=== PATIENT | female | born 1970 | race Caucasian/White ===

== ENCOUNTER → 2022-03-20 14:44 | Outpatient (CLI) | payer OTHER, SELFPAY ==
--- NOTE | ~2022-03-20 | XR_ITS ---
XR elbow RT min 3V DATE: 03/20/2022 15:02 INDICATION: Posterior elbow pain. No injury. TECHNIQUE: 4 views COMPARISON: None FINDINGS: No fracture or dislocation or joint effusion. No periosteal reaction or bone destruction. J oint spaces are preserved. IMPRESSION: Negative Reviewed, dictated and finalized at location B. TEGY SPECIALIST IMPRESSION: Negative
--- NOTE | ~2022-03-20 | XR_ITS ---
XR knee RT 3V DATE: 03/20/2022 15:01 INDICATION: Anterior and posterior right knee pain. No injury. TECHNIQUE: AP, lateral and sunrise views COMPARISON: None FINDINGS: There is mild periarticular spurring of the patella. Knee joint spaces are well preserved. No radiopaque intra-articular loose body or chondrocalcinosis. No fracture or dislocation or joint effusion. No periosteal reaction or bone destruction. IMPRESSION: Mild patellofemoral osteoarthritis Reviewed, dictated and finalized at location B. 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
== END ==
PROVIDERS: PCP Internal Medicine; Visit Provider Orthopaedic Surgery
DX: M25.521 Pain in right elbow (principal); M17.11 Unilateral primary osteoarthritis, right knee
CPT/HCPCS: 73080; 73562

== ENCOUNTER → 2022-05-08 17:07 | Outpatient (CLI) | payer OTHER, SELFPAY ==
--- NOTE | ~2022-05-08 | MR_ITS ---
MRI of the right knee Clinical history: Pain Technique: Coronal proton density and proton density-weighted images, sagittal proton-density and T2 fat-sat images, and axial proton-density fat-saturated images were acquired. Findings: Anterior and posterior cruciate ligaments are intact. Medial collateral ligament and the la teral collateral ligament complex are intact. Popliteus tendon is intact. Medial and lateral menisci are intact, without evidence of tear. Articular cartilage is well preserved in the medial and lateral compartment. There are probable grade I chondromalacia changes on the patella. Bone marrow signals are unremarkable. Extensor mechanism is intact. No joint effusion or Ulloa's cyst. There is mild edematous change of th e quadriceps fat pad. Impression: Mild edematous change of the quadriceps fat pad. Consider impingement. Grade I chondromalacia patella. Reviewed, dictated and finalized at [facility]. 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 Consider impingement. Grade I chondromalacia patella.
== END ==
PROVIDERS: PCP Orthopaedic Surgery; Visit Provider Orthopaedic Surgery
DX: M25.561 Pain in right knee (principal); R60.9 Edema, unspecified; M22.41 Chondromalacia patellae, right knee
CPT/HCPCS: 73721

== ENCOUNTER 2022-05-18 12:41 | Emergency (ER) | payer OTHER, SELFPAY ==
[2022-05-18 12:56] VITALS: BP 140/96; PULSE 88; RESP 16; TEMP 36.1; O2SAT 100
--- NOTE | 2022-05-18 13:00 | ED.EAR ---
HPI - Ear Problem General Chief complaint: Ear Stated complaint: Lt Ear Irritation Time Seen by Provider: 05/18/22 12:58 Source: patient Mode of arrival: ambulatory Limitations: no limitations History of Present Illness HPI Narrative: Samreen is a 52-year-old female patient presenting to the clinic today with complaints of left ear pain x1 day. She reports that she has had nasal congestion, runny nose, and cough x1 week. She denies any fever or chills. Related Data Home Medications Medication Instructions Recorded Confirmed fluoxetine 20 mg capsule 20 mg PO DAILY 05/18/22 05/18/22 losartan 50 mg-hydrochlorothiazide 1 tablet PO DAILY 05/18/22 05/18/22 12.5 mg tablet Allergies Allergy/AdvReac Type Severity Reaction Status Date / Time No Known Allergies Allergy Verified 05/18/22 12:46 Review of Systems Review of Systems: Pertinent positives per HPI. Patient denies any fever, chills, rash, headache, visual changes, dizziness, shortness of breath, chest pain, palpitations, nausea, vomiting, diarrhea, constipation, abdominal pain, or any urinary issues. PMFSH Comments At the time of my signature, I reviewed and agree with the nursing past medical, surgical, social, and family history. There is no relevant family history pertinent to the patient complaint. Exam Narrative: General: Well-developed, well nourished, in no apparent distress Head: Normocephalic, atraumatic Eyes: Pupils equally round and reactive to light bilaterally, EOM intact, sclera and conjunctive clear, no discharge, lids normal Ears: Right TMs intact and clear, left TM intact, bulging, red, ear canals clear, no drainage, grossly hearing normal. Nose: Nares patent, clear nasal discharge, no inflammation, no sinus tenderness. Mouth: Oral pharynx without lesions or masses, good dentition, MMM. Postnasal drip Neck: Supple, trachea midline, no enlargement of anterior or posterior cervical nodes, no thyroid masses or goiter palpable. Cardio: Regular rate and rhythm, s1 and s2 normal, no murmur appreciated. Resp: Clear to auscultation bilaterally, no rhonchi, rales, wheezing or rubs Course Course Emergency Course: Portions of this record may have been created with voice recognition software. Level of Care: Express Care Visit Vital Signs Vital signs: Vital Signs Temperature 36.1 C L 05/18/22 12:56 Pulse Rate 88 05/18/22 12:56 Respiratory Rate 16 05/18/22 12:56 Blood Pressure 140/96 H 05/18/22 12:56 Pulse Oximetry 100 05/18/22 12:56 Oxygen Delivery Room Air 05/18/22 12:56 Temperature 36.1 C L 05/18/22 12:56 Pulse Rate 88 05/18/22 12:56 Respiratory Rate 16 05/18/22 12:56 Blood Pressure 140/96 H 05/18/22 12:56 Pulse Oximetry 100 05/18/22 12:56 Oxygen Delivery Room Air 05/18/22 12:56 Vital signs reviewed Medical Decision Making MDM Narrative Medical decision making narrative: At the time of visit patient is resting comfortably on exam table. I suspect patient has right otitis media and URI. Prescription for amoxicillin was sent to pharmacy and supportive measures were discussed with the patient she voiced understanding of discharge instructions and agrees to treatment plan. Differential Diagnosis Differential Diagnosis: Otitis media, otitis externa, eustachian tube dysfunction, upper respiratory infection Vital Signs Vital Signs: Vital Signs Temperature 36.1 C L 05/18/22 12:56 Pulse Rate 88 05/18/22 12:56 Respiratory Rate 16 05/18/22 12:56 Blood Pressure 140/96 H 05/18/22 12:56 Pulse Oximetry 100 05/18/22 12:56 Oxygen Delivery Room Air 05/18/22 12:56 Temperature 36.1 C L 05/18/22 12:56 Pulse Rate 88 05/18/22 12:56 Respiratory Rate 16 05/18/22 12:56 Blood Pressure 140/96 H 05/18/22 12:56 Pulse Oximetry 100 05/18/22 12:56 Oxygen Delivery Room Air 05/18/22 12:56 Discharge Plan Discharge Clinical Impression: Acute upper respiratory infection, O
== END 2022-05-18 13:08 | disposition home or self-care (01) ==
PROVIDERS: Emergency Provider Nurse Practitioner Family; PCP Internal Medicine
DX: J06.9 Acute upper respiratory infection, unspecified (principal); H66.92 Otitis media, unspecified, left ear; I10 Essential (primary) hypertension; F41.9 Anxiety disorder, unspecified; F32.A Depression, unspecified
CPT/HCPCS: 99213; G0463

== ENCOUNTER 2024-04-07 17:44 | Emergency (ER) | payer OTHER, SELFPAY ==
[2024-04-07 17:51] VITALS: BP 127/84; PULSE 69; RESP 18; TEMP 36.6; O2SAT 100
--- NOTE | 2024-04-07 18:00 | ED_ITS ---
HPI - URI/Sore Throat General Chief Complaint: Upper Respiratory Infection Stated Complaint: cough Time Seen by Provider: 04/07/24 18:00 Source: patient, RN notes reviewed and old records reviewed Mode of arrival: ambulatory Limitations: no limitations History of Present Illness HPI Narrative: Patient with multiple family members with atypical pneumonia presents today with productive cough, sore throat, lack of energy. She reports symptoms have been present for about 5 days. She reports symptoms are worsening. She denies any shortness of breath, but does report that she feels as though cough is tight. She reports that cough has become painful Related Data Home Medications ?Medication ?Instructions ?Recorded ?Confirmed ?Last Taken ?Type fluoxetine 20 mg capsule 20 mg PO DAILY 05/18/22 05/18/22 Unknown History losartan 50 mg-hydrochlorothiazide 1 tablet PO DAILY 05/18/22 05/18/22 Unknown History 12.5 mg tablet Allergies Allergy/AdvReac Type Severity Reaction Status Date / Time No Known Allergies Allergy Verified 04/07/24 17:54 Review of Systems Review of Systems: All systems reviewed & are unremarkable except as noted in HPI and below Constitutional: Constitutional: Reports no additional constitutional complaints and Reports lethargy ENT: Reports system reviewed and no additional complaints, except as documented and Reports sore throat Cardiovascular: Cardiovascular: Reports no additional cardiovascular complaints Respiratory: Respiratory: Reports no additional respiratory complaints, Reports cough and Reports pain with cough Gastrointestinal: Gastrointestinal: Reports no additional gastrointestinal complaints PMFSH Comments At the time of my signature, I reviewed and agree with the nursing past medical, surgical, social, and family history. There is no relevant family history pertinent to the patient complaint. Exam Const: General: cooperative, no acute distress, alert and awake Orientation/consciousness: oriented to person, oriented to place and oriented to time HENMT: Head: normal to inspection Resp: Effort & Inspection: normal respiratory effort and able to speak in complete sentences Auscultation: clear to auscultation bilaterally, no crackles, no rales, no rhonchi and no wheezes Cardio: Palpation: normal PMI Rate: regular rate Rhythm: regular rhythm Heart sounds: S1 normal heart sound present and S2 normal heart sound present Neuro: General: oriented to person, oriented to place and oriented to time Cranial nerves: Yes CN's II-XII intact bilaterally Psych: Appearance: grossly normal Thought process: Normal thought process present Insight: Good insight present (Psych) Judgement: Good judgement present (Psych) Course Course Level of Care: Express Care Visit Vital Signs Vital signs: Vital Signs Temperature 97.8 F 04/07/24 17:51 Pulse Rate 69 04/07/24 17:51 Respiratory Rate 18 04/07/24 17:51 Blood Pressure 127/84 04/07/24 17:51 Pulse Oximetry 100 04/07/24 17:51 Oxygen Delivery Room Air 04/07/24 17:51 Temperature 97.8 F 04/07/24 17:51 Pulse Rate 69 04/07/24 17:51 Respiratory Rate 18 04/07/24 17:51 Blood Pressure 127/84 04/07/24 17:51 Pulse Oximetry 100 04/07/24 17:51 Oxygen Delivery Room Air 04/07/24 17:51 Reviewed MDM - URI/Sore Throat MDM Narrative Medical decision making narrative: reassuring physical exam. Patient not any distress. History consistent with atypical pneumonia that is prevalent in the community at this time. Will treat as such. She is nontoxic appearing and stable for discharge home on p.o. antibiotic therapy and bronchodilators. Discharge instructions reviewed with patient, as well as provided in writing per nursing staff. The instructions also include specific and strict return/GO TO THE ER as well as f/u information. All questions have been answered, and the patient deny any further questions with discharge and discharge plan. Some parts of this dictation were generated by voice recognition software and may contain typographical and/or grammatical inaccuracies. Differential Diagnosis Differential diagnosis: Likely upper respiratory infection, sinusitis, viral infection, influenza and pharyngitis Medical Records Attestation: I reviewed the patient's medical records. Discharge Plan Discharge Clinical Impression: Atypical pneumonia Patient Disposition: Home, Self-Care Condition: Stable Instructions: Antibiotic Form, Community Acquired Pneumonia (ED) Additional Instructions: Take medication as prescribed. Follow with primary care provider. Emergency department for new or worse symptoms Patient Language: Greenlandic Prescriptions: New azithromycin [Zithromax] 250 mg tablet See Rx Instructions .ROUTE .COMPLEX Qty: 6 0RF Rx Instructions: For 250 mg dose pack: take 500 mg today (day 1), then 250 mg for 4 days (days 2-5) albuterol sulfate [Ventolin HFA] 90 mcg/actuation HFA aerosol inhaler 2 puff inhalation QID PRN (Reason: shortness of breath or wheezing) Qty: 8.5 0RF No Action losartan-hydrochlorothiazide 50-12.5 mg tablet 1 tablet PO DAILY fluoxetine 20 mg capsule 20 mg PO DAILY amoxicillin 875 mg tablet 875 mg PO Q12H 7 Days Qty: 14 0RF Follow-up/Referrals: Fabrizio,Galen Pichardo MD [Primary Care Provider] - 2 Weeks Time of Disposition: 18:10
== END 2024-04-07 18:20 | disposition home or self-care (01) ==
PROVIDERS: Emergency Provider Nurse Practitioner Family; PCP Internal Medicine
DX: J18.9 Pneumonia, unspecified organism (principal); I10 Essential (primary) hypertension; F41.9 Anxiety disorder, unspecified; F32.A Depression, unspecified
CPT/HCPCS: 99213; G0463

== ENCOUNTER 2025-02-06 08:49 | Emergency (ER) | payer BC, SELFPAY ==
--- OUTSIDE RECORDS SUMMARY | 2024-09-27 08:00 | XMS_ITS ---
Author Organization [facility]ieve [facility] [email or web address] [place] [address] Care Team Providers Care Licensed Appraiser Name Role Phone Galen Dinh Primary Care Provider Sarah Phan Unavailable [phone] REASON FOR VISIT back pain, former patient Encounters Encounter Location Date Provider Diagnosis [facility] [email or web address] [address] [address] [place] [address] 09/27/2024 Sarah Snyder Plan Of Treatment No Information Progress Notes * Moiz GIRALDOOB: 3 (54 yo F)Acc No.[id number]:09/27/2024 New Patient Patient: Aurea THOMAS Appointment Provider: TANYA Stevens :1970 A ge:54 Y S ex:Female Date:09/27/2024 [facility] [id number] Pcp:Galen Dinh Subjective: * Chief Complaints: * 1 . Back pain, former patient. * Medical History: Objective: * Vitals: Assessment: Plan: * Treatment: * Billing Information: * Visit Code: * Procedure Codes: * Electronic signature of TANYA Briceno on 02/06/2025 at 09:45 AM CDT Sign off status: Pending * Appointment Provider: TANYA Stevens Date: 0 09/27/2024 Generated for E[place] ng/Faxing/eTransmitting on: 1 09:45 AM CDT
--- NOTE | 2025-02-06 08:51 | ED.URI ---
HPI - URI/Sore Throat General Chief Complaint: Upper Respiratory Infection Stated Complaint: sinus inf Time Seen by Provider: 02/06/25 08:51 Source: patient Mode of arrival: ambulatory Limitations: no limitations History of Present Illness HPI Narrative: Aurea is a 54-year-old female patient presenting to the clinic today with complaints of a possible sinus infection x10 days. She reports she is having yellow nasal drainage, maxillary sinus pressure, and cough when lying flat. Denies any chest pain or shortness of breath. No fevers, chills, body aches. Rates her pain 2/10. Has taken Mucinex, NyQuil, and [id number]-[id number] decongestant. Related Data Home Medications ?Medication ?Instructions ?Recorded ?Confirmed ?Last Taken ?Type fluoxetine 20 mg capsule 20 mg PO DAILY 05/18/22 05/18/22 Unknown History losartan 50 mg-hydrochlorothiazide 1 tablet PO DAILY 05/18/22 05/18/22 Unknown History 12.5 mg tablet Allergies Allergy/AdvReac Type Severity Reaction Status Date / Time No Known Allergies Allergy Verified 02/06/25 09:07 Review of Systems Review of Systems: Pertinent positives per HPI. Patient denies any fever, chills, rash, headache, visual changes, dizziness, cough, shortness of breath, chest pain, palpitations, nausea, vomiting, diarrhea, constipation, abdominal pain, or any urinary issues. PMFSH Comments At the time of my signature, I reviewed and agree with the nursing past medical, surgical, social, and family history. There is no relevant family history pertinent to the patient complaint. Exam Narrative: General: Well-developed, well nourished, in no apparent distress Head: Normocephalic, atraumatic Eyes: Pupils equally round and reactive to light bilaterally, EOM intact, sclera and conjunctive clear, no discharge, lids normal Ears: TMs intact and congested, ear canals clear, no drainage, grossly hearing normal. Nose: Nares patent, yellow nasal discharge, moderate inflammation, maxilla sinus tenderness. Mouth: Oral pharynx mildly red without lesions or masses, good dentition, MMM. Postnasal drip Neck: Supple, trachea midline, no enlargement of anterior or posterior cervical nodes, no thyroid masses or goiter palpable. Cardio: Regular rate and rhythm, s1 and s2 normal, no murmur appreciated. Resp: Clear to auscultation bilaterally, no rhonchi, rales, wheezing or rubs Course Course Emergency Course: Portions of this record may have been created with voice recognition software. Level of Care: Express Care Visit Vital Signs Vital signs: Vital Signs Temperature 36.4 C 02/06/25 09:07 Pulse Rate 72 02/06/25 09:07 Respiratory Rate 16 02/06/25 09:07 Blood Pressure 111/81 02/06/25 09:07 Pulse Oximetry 100 02/06/25 09:07 Temperature 36.4 C 02/06/25 09:07 Pulse Rate 72 02/06/25 09:07 Respiratory Rate 16 02/06/25 09:07 Blood Pressure 111/81 02/06/25 09:07 Pulse Oximetry 100 02/06/25 09:07 Vital signs reviewed MDM - URI/Sore Throat MDM Narrative Medical decision making narrative: At the time of visit patient is resting comfortably on the exam table. Patient appears to be nontoxic. Complaints of a possible sinus infection x10 days. She reports she is having yellow nasal drainage, maxillary sinus pressure, and cough when lying flat. Denies any chest pain or shortness of breath. No fevers, chills, body aches. Rates her pain 2/10. Has taken Mucinex, NyQuil, and [id number] decongestant. On exam patient has a TMs intact and congested, yellow nasal drainage, moderate anterior turbinates inflammation, maxillary sinus pressure, postnasal drip, lung sounds are clear, heart rates regular rate and rhythm. Plan: I suspect patient has acute bacterial rhinosinusitis. Prescription for Augmentin and prednisone was sent to the pharmacy. Supportive measures were discussed with the patient and they voiced understanding discharge instructions and agrees to treatment plan. Return precautions reviewed Differential Diagnosis Differential diagnosis: Likely upper respiratory infection, otitis media, sinusitis, viral infection, bronchitis, influenza, pharyngitis and other (COVID) Discharge Plan Discharge Clinical Impression: Acute bacterial rhinosinusitis Patient Disposition: Home Condition: Stable Instructions: Antibiotic Form, Rhinosinusitis (ED) Additional Instructions: Take prescription medications only as prescribed-Augmentin and prednisone Increase fluids and stay well hydrated May take Tylenol or motrin as directed on bottle for pain/fever May use Flonase 1 spray in each nare daily May take OTC antihistamines such as Zyrtec or Claritin daily as directed on bottle May apply Vicks vapor rub to chest to open sinuses Sinus rinses for congestion Cepacol spray, cough drops, throat lozenges, warm tea with honey/lemon, gargle salt water to soothe throat BRAT diet for diarrhea Clear liquids x 24 hours then advance as tolerated for nausea/vomiting Go to the ED if you develop a worsening in your condition- high fever not controlled by Tylenol or Motrin, dehydration, weakness, lethargy, shortness of breath, or chest pain. Follow up with your PCP in 3-5 days if symptoms persist. Patient Language: Setswana Prescriptions: New amoxicillin-pot clavulanate 875-125 mg tablet 1 tablet PO Q12H 10 Days Qty: 20 0RF prednisone 20 mg tablet 40 mg PO DAILY 5 Days Qty: 10 0RF No Action losartan-hydrochlorothiazide 50-12.5 mg tablet 1 tablet PO DAILY fluoxetine 20 mg capsule 20 mg PO DAILY Follow-up/Referrals: Fabrizio,Galen Pichardo MD [Primary Care Provider] Stand Alone Forms: Work/School Release IP Time of Disposition: 09:11 Quality NIHSS Nursing Documentation ED NIHSS nursing documentation: reviewed/agree
[2025-02-06 09:07] VITALS: BP 111/81; PULSE 72; RESP 16; TEMP 36.4; O2SAT 100
--- OUTSIDE RECORDS SUMMARY | 2025-02-06 09:45 | XMS_ITS | Clinical Summary ---
Author Organization [facility] Address [address] [place] [address] Care Team Providers Care Ice Rink Attendant Name Role Phone Galen Dinh MD Primary Care Provider [phone] Allergies No known active allergies Medications losartan-hydro CHLOROthiazide (HYZAAR) 50-12.5 mg per tablet TAKE 1 TABLET BY MOUTH EVERY DAY 90 tablet 2 4 Active aspirin 81 mg enteric coated tablet Take 1 tablet (81 mg total) by mouth daily Active FLUoxetine (PROzac) 20 mg capsule TAKE 1 CAPSULE BY MOUTH EVERY DAY 90 capsule 2 5 Active estradioL (ESTRACE) 0.01 % (0.1 mg/gram) vaginal cream Apply nightly to vagina for 1 week, then Thursday/ay 42.5 g 5 5 09/24/19 26 Active FLUoxetine (PROzac) 20 mg capsule TAKE 1 CAPSULE BY MOUTH EVERY DAY 90 capsule 2 4 01/17/20 25 Discontinued Hospital, Clinic, or Other Facility Administered Medication Ordered Dose Route Frequency Start Date End Date Status perflutren protein-a (OPTISON) 3 mL in sodium chloride 0.9% 8 mL syringe 1 - 8 mL IV Once in imaging 10/12/2024 Active Active Problems Problem Noted Date Diagnosed Date Hepatic hemangioma 01/02/2025 Assessment & Plan (01/02/2025 2:37 PM CDT): Mrs. Paige presents to establish care for hepatic hemangiomas. She has a history of MPL positive essential thrombocythemia and cavernous malformation. She has normal appearing background liver and normal liver tests. I will update lab work today to include CBC, CMP, Viral Hepatitis immune status. She is currently asymptomatic and denies abdominal pain. I have explained to the patient in regards to the natural history, plans of management and prognosis of hepatic hemangiomas. There is excellent prognosis, with low risk for malignancy. Typically, the patient with hepatic hemangiomas rarely develop symptoms. The complications such as bleeding, rupture, are rare. There is no medical treatment to reduce the size of the lesions. Surgery and possible embolization are options with symptomatic patients. There is no strong association between estrogen therapy and hepatic hemangioma. Follow up PRN. Essential thrombocythemia 08/11/2024 Vulvar irritation 06/13/2024 Cavernoma 02/19/2024 Overview (02/19/2024): Pt dx 2 /12 years ago; Menorrhagia with regular cycle 02/19/2024 Skin mole 02/19/2024 Vasovagal syncope 01/26/2024 Assessment & Plan (01/26/2024 1:20 PM CDT): Etiology unclear. Possibly related to gastroenteritis or possibly dehydration. No signs or symptoms to suggest seizure activity. No evidence of cardiac as a primary cause. She currently feels well. Plan at this point is to check laboratory studies. Will check 48 hour Holter. Will check MRI brain as 1 has not been done in 2 years. Will have her follow-up with her neurologist and she will organize this at on her own. Tubular adenoma of colon 11/27/2023 Overview (11/27/2023): Three Tubular adenoma removed, largest about 11 mm; colonoscopy repeat in 3 years recommended Dysfunction of both eustachian tubes 05/26/2022 Assessment & Plan (05/26/2022 2:07 PM COW PUNCHER): Nasal sprays (use, technique, s/e reviewed) Warm salt water gargles Mucinex DM Encounter for screening colonoscopy 01/20/2022 Migraine without aura and wi thout status migrainosus, not intractable 05/23/2020 Assessment & Plan (05/23/2020 9:00 AM COW PUNCHER): Samples of ubrelvy Cavernous malformation 01/07/2019 Assessment & Plan (05/23/2020 8:59 AM COW PUNCHER): Doing well, no new symptoms 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 Valeriano maza by MRI last summer (2010) EJV Encounters Date Type Department Care Team Description 01/30/2025 Results Follow-Up [facility] Medicine Obstetrics and Gynecology [address] [facility] 7th [address] [place] [phone] Any Murphy MD Follicle stimulating hormone, Estradiol, TSH 01/26/2025 3:00 PM CDT Office Visit [facility] Medicine Obstetrics and Gynecology [address] [facility] 7th [address] [place] [address] Any Murphy MD Hot flashes (Primary Dx); Essential thrombocythemia (HCC); Hepatic hemangioma; Migraine without aura and without status migrainosus, not intractable; S/P endometrial ablation 01/04/2025 Telephone [facility] Medicine Gastroenterology [facility] 12th [place] [address] [place] [phone] Nayely Eldridge NP 01/03/2025 Results Follow-Up [facility]astroenterology [address] [facility] [address] [place] [address] Nayely Eldridge NP Hepatitis C antibody Blood, Hepatitis B Surface Antigen Blood, Hepatitis B surface antibody (immune status) Blood, Additional followed-up results: 7 01/02/2025 2:40 PM CDT Lab [address] [address] [place] [id number] Hepatic hemangioma 01/02/2025 2:00 PM CDT Office Visit [facility] Medicine Gastroenterology [address] [facility] [address], [address] [place] [address] Nayely Eldridge, COURTNEY Hepatic hemangioma (Primary Dx) from Last 3 Months Immunizations Immunization Administration Dates Next Due Flucelvax Influenza Quad 03/31/2017 Hep A, Adult 10/13/2018 Influenza, Quadrivalent, Spl it, Preservative Free, Intramuscular 01/08/2020 Influenza, Trivalent, IM (MDV) 01/19/2013 Influenza, Trivalent, Preser vative Free, Intramuscular 02/11/2016,01/19/2016,01/25/2015,01/18 Influenza, Unspecified 01/19/2023 Tdap 10/13/2018,09/06/2011 Surgical History Surgery Date Site/Laterality Comments SECTION ABLATION COLONOSCOPY Medical History Medical History Date Comments Hypertension Migraines Essential thrombocytopenia (HCC) Family History Medical History Relation Name Comments Heart attack Father Sam Heart failure Father Sam Hypertension Father Sam Family history of hypertension - (Added by TW Conv) Colon cancer Maternal Grandmother Cancer Mother Shani Hypertension Mother Shani Family history of hypertension - (Added by TW Conv) Ovarian cancer Mother Shani Relation Name Status Comments Father Sam Maternal Grandmother Mother Shani Social History Tobacco Use Types Packs/Day Years Used Date Smoking Tobacco: Never Passive Smoke Exposure: Never Tobacco Cessation:Counseling Given: Not Answered Alcohol Use Standard Drinks/Week Comments Yes 0 (1 standard drink = 0.6 oz pur e alcohol) AUDIT-C Answer Date Recorded Q1: How often do you have a drink containing alc ohol? Monthly or less 01/26/2025 Q2: How many drinks containi ng alcohol do you have on a typical day when you are drinking? 1 or 2 01/26/2025 Q3: How often do you have si x or more drinks on one occasion? Never 01/26/2025 Personal Safety Answer Date Recorded Have you ever been in or are you currently in a harmful physical or emotional relationship or is someone making you feel afraid or unsafe? Denies 11/25/2023 Comments No Sex and Gender Information Value Date Recorded Sex Assigned at Not on file Legal Sex Female 5:31 AM COW PUNCHER Gender Identity Not on file Sexual Orientation Not on file Obstetrics History Para Term AB IAB SAB Ectopic Multiple Livin g Live Births 2 2 2 2 2 Date Outcome GA Total Labor Labor/2nd/3rd Weight Sex Type Anes PTL Gregoria A1 A5 Name Clin 2006 Term 40w 0d 3.43 kg (7 lb 9 oz) M Epidur al N Livin g 2011 Term 38w 1d 3.593 kg (7 lb 14.7 oz) F C-S j incis Livin g 9 9 ENZO ,BABY GIRL RACHE LLAnand Dmitriy sofiya landaverde MD Delivery Location[facility] Last Filed Vital Signs Vital Sign Reading Time Taken Comments Blood Pressure 130/86 01/26/2025 2:54 PM CDT Pulse 74 01/02/2025 2:03 PM CDT Temperature 36.8 C (98.2 F) 08/31/2024 1:28 PM CDT Respiratory Rate 18 07/27/2024 8:23 AM CDT Oxygen Saturation 98% 01/02/2025 2:03 PM CDT Inhaled Oxygen Concentration - - Weight 63.1 kg (139 lb 3.2 oz) 01/26/2025 2:54 P M CDT Height 162.6 cm (5' 4) 01/26/2025 2:54 PM CDT Body Mass Index 23.89 01/26/2025 2:54 PM CDT Plan of Treatment Health Maintenance Due Date Last Done Comments Cervical Cancer Screening 1970 Depression Screening 1970 Regular Well Visit/Exam 18-64 1990 Zoster Vaccine (1 of 2) 2022 Influenza Vaccine (#1) 2024 , 01/19/2023, 01/08/2020, Additional history exists Breast Cancer Screening-Mammogram 09/20/2025 09/20/2024, 09/20/2024, 07/03/2023, Additional history exists Colon Cancer Screening-Colonoscopy 11/24/2026 11/25/2023, 11/20/2023 DTaP/Tdap/Td Vaccine (3 - Td or Tdap) 10/13/2028 10/13/2018, 09/06/2011 Hepatitis B Screening Completed 01/02/2025 Hepatitis C Screening Completed 01/02/2025 Pneumococcal vaccine <65 Aged Out No longer eligible based on patient's age to complete this topic Procedures Procedure Name Priority Date/Time Associated Diagnosis Comments TSH Routine 01/27/2025 2:16 PM CDT Hot flashes ESTRADIOL Routine 01/27/2025 2:16 PM CDT Hot flashes FOLLICLE STIMULATING HORMONE Routine 01/27/2025 2:16 PM CDT Hot flashes EGFR Routine 01/02/2025 2:51 PM CDT Hepatic hemangioma DIFFERENTIAL AUTO Routine 01/02/2025 2:5 1 PM CDT Hepatic hemangioma CBC WITH AUTO DIFFERENTIAL Routine 01/02/2025 2:51 PM CDT Hepatic hemangioma COMPREHENSIVE METABOLIC PANEL Routine 01/02/2025 2:51 PM CDT Hepatic hemangioma HEPATITIS A ANTIBODY, IGM Routine 01/02/2025 2:51 PM CDT Hepatic hemangioma HEPATITIS A ANTIBODY, TOTAL Routine 01/02/2025 2:51 PM CDT Hepatic hemangioma HEPATITIS B CORE ANTIBODY, TOTAL Routine 01/02/2025 2:51 PM CDT Hepatic hemangioma HEPATITIS B SURFACE ANTIBODY (IMMUNE STATUS) Routine 01/02/2025 2:51 PM CDT Hepatic hemangioma HEPATITIS B SURFACE ANTIGEN Routine 01/02/2025 2:51 PM CDT Hepatic hemangioma HEPATITIS C ANTIBODY Routine 01/02/2025 2:51 PM CDT Hepatic hemangioma COLONOSCOPY 11/25/2023 8:30 AM CDT SCREENING MAMMOGRAM 2D BILATERAL Schedule Routine, Read Routine (OP Routine) 02/21/2020 from Last 3 Months or Most Recently Relevant to Health Maintenance Results * Estradiol (01/27/2025 2:16 PM CDT) Pathologist [facility] Estradiol 15 pg/mL [facility] Comment: Reference Range Follicular Phase: 19-144 Mid-Cycle: 64-357 Luteal Phase: 56-214 Postmenopausal: < or = 31 Reference range established on post-pubertal patient population. No pre-pubertal reference range established using this assay. For any patients for whom low Estradiol levels are anticipated (e.g. males, pre-pubertal children and hypogonadal/post-menopausal females), the [facility] Estradiol, Ultrasensitive, LCMSMS assay is recommended (order code 11859). Please note: patients being treated with the drug fulvestrant (Faslodex(R)) have demonstrated significant interference in immunoassay methods for estradiol measurement. The cross reactivity could lead to falsely elevated estradiol test results leading to an inappropriate clinical assessment of estrogen status. [facility] order code 50649-[id number], Ultrasensitive LC/MS/MS demonstrates negligible cross reactivity with fulvestrant. Blood 01/27/2025 2:16 PM CDT 01/27/2025 2:16 PM CDT Any Murphy MD LAB BLOOD ORDERABLES Fi nal Result [facility] [address] [place] [address] * TSH (01/27/2025 2:16 PM CDT) Pathologist [facility] TSH 1.00 mIU/L [facility] Comment: Reference Range > or = 20 Years 0.40-4.50 Ranges First trimester 0.26-2.66 Second trimester 0.55-2.73 Third trimester 0.43-2.91 Blood 01/27/2025 2:16 PM CDT 01/27/2025 2:16 PM CDT Any Murphy MD LAB BLOOD ORDERABLES Fi nal Result [facility] [address] [place] [address] * Follicle stimulating hormone (01/27/2025 2:16 PM CDT) Pathologist [facility] FSH 85.5 mIU/mL [facility] Comment: Reference Range Follicular Phase 2.5-10.2 Mid-cycle Peak 3.1-17.7 Luteal Phase 1.5- 9.1 Postmenopausal 23.0-116.3 Blood 01/27/2025 2:16 PM CDT 01/27/2025 2:16 PM CDT Any Murphy MD LAB BLOOD ORDERABLES Fi nal Result Performing Organization Address [facility] Co de Phone Number [facility] [address] [place] [address] * eGFR (01/02/2025 2:51 PM CDT) [facility] eGFR >90 >=60 mL/min/1. 73 m2 Comment: Interpretive Data Reference Interval Normal >/= 90 mL/min/1.73m2 Mildly decreased* 60 - 89 mL/min/1.73m2 Mildly to moderately decreased 45 - 59 mL/min/1.73m2 Moderately to severely decreased 30 - 44 mL/min/1.73m2 Severely decreased 15 - 29 mL/min/1.73m2 Kidney Failure < 15 mL/min/1.73m2 *Relative to young adult level Estimated glomerular filtration rate is determined by the 2020 CKD-EPI equation recommended by the National Kidney Foundation (A Unifying Approach to GFR Estimation: Recommendations of the NKF-ASK Task Force on Reassessing the Inclusion of Race in Diagnosing Kidney Disease, JASN 2020). The CKD-EPI equation should not be used for patients with unstable renal function and has not been validated in children and those over 70. Current interpretive data was last reviewed 2021. Blood 01/02/2025 2:51 PM CDT 01/02/2025 3:10 PM CDT us Nayely Eldridge COURTNEY LAB BLOOD ORDERABLES Final Result [facility] [address] [place] [facility]. [place] [address] * Differential, auto (01/02/2025 2:51 PM CDT) Neutrophil abs 3.38 1.50 - 6.50 K/cumm Imm gran abs 0.02 0.00 - 0.10 K/cumm [facility] Lymphocyte abs 1.93 0.80 - 3.30 K/cumm [facility] Monocyte abs 0.49 0.20 - 0.80 K/cumm [facility] Eosinophil abs 0.07 0.00 - 0.50 K/cumm [facility] Basophil abs 0.02 0.00 - 0.10 K/cumm [facility] Neutrophil pct 57.2 % [facility] Comment: Interpretive Data Percent cell count reference ranges are not reported, since discordance with absolute values may lead to misinterpretation of CBC data. Current Interpretive Data was last revised on 2017. Imm gran pct 0.3 % [facility] Comment: Interpretive Data Percent cell count reference ranges are not reported, since discordance with absolute values may lead to misinterpretation of CBC data. Current Interpretive Data was last revised on 2017. Lymphocyte pct 32.7 % [facility] Comment: Interpretive Data Percent cell count reference ranges are not reported, since discordance with absolute values may lead to misinterpretation of CBC data. Current Interpretive Data was last revised on 2017. Monocyte pct 8.3 % [facility] Comment: Interpretive Data Percent cell count reference ranges are not reported, since discordance with absolute values may lead to misinterpretation of CBC data. Current Interpretive Data was last revised on 2017. Eosinophil pct 1.2 % [facility] Comment: Interpretive Data Percent cell count reference ranges are not reported, since discordance with absolute values may lead to misinterpretation of CBC data. Current Interpretive Data was last revised on 2017. Basophil pct 0.3 % [facility] Comment: Interpretive Data Percent cell count reference ranges are not reported, since discordance with absolute values may lead to misinterpretation of CBC data. Current Interpretive Data was last revised on 2017. Blood 01/02/2025 2:5 1 PM CDT 01/02/2025 3:10 PM CDT Nayely Eldridge LINE CREWMAN LAB BLOOD ORDERABLES Final Result Performing Organization Address City/[facility]/ZIP Co de Phone Number SELENE VEGA [address] [place] [address] * (ABNORMAL) CBC with auto differential (01/02/2025 2:51 PM CDT) WBC 5.91 3.80 - 9.90 K/cumm Hgb 12.3 11.9 - 15.5 g/dL [facility] Hct 36.2 35.6 - 45.5 % [facility] Plt 645(H) 150 - 400 K/cumm [facility] MPV 9.1 9.1 - 12.3 fL [facility] RBC 4.07 3.90 - 5.20 M/cumm [facility] MCV 88.9 81.3 - 96.4 fL [facility] MCH 30.2 27.1 - 33.3 pg [facility] MCHC 34.0 32.3 - 35.7 g/dL [facility] RDW CV 12.4 11.1 - 14.9 % [facility] RDW SD 40.5 35.7 - 48.1 fL [facility] NRBC abs 0.00 0.00 - 0.01 K/cumm [facility] Blood 01/02/2025 2:51 PM CDT 01/02/2025 3:10 PM CDT Nayely Eldridge COURTNEY LAB BLOOD ORDERABLES Final Result Performing Organization Address [facility]/ZIP Co de Phone Number [place] [address] [employer] [place] [address] * Hepatitis C antibody Blood (01/02/2025 2:51 PM CDT) Hep C Ab Nonreactive Nonreactive Comment: Interpretive Data Nonreactive: Antibodies to HCV not detected. Does NOT exclude the possibility of recent exposure to HCV. Equivocal: Equivocal for HCV antibodies. Supplemental molecular testing will be automatically performed to determine infection status in accordance with current CDC screening recommendations. Reactive: Positive for HCV antibodies. This may represent current or past HCV infection. Supplemental molecular testing will be automatically performed to determine current infection status in accordance with current CDC screening recommendations. Interpretive data was last revised on 2019. Testing performed by: [facility], [address] [place] [address]., [id number] Blood 01/02/2025 2:51 PM CDT 01/02/2025 5:12 PM CDT Nayely Eldridge NP LAB MICROBIOLOGY - GENERAL ORDERABLES Final Result Performing Organization Address [facility] Co de Phone Number [facility] [address] [employer]. [address] [place] [address] * Hepatitis A antibody, IgM Blood (01/02/2025 2:51 PM CDT) Hep A IgM Nonreactive Nonreactive Comment: Interpretive Data: If Hep A IgM Ab is reported as Equivocal, a new sample should be drawn in two weeks for testing. Current interpretive data was last revised on 19. Testing performed by: [facility], [address] [place] [address]., [id number] Blood 01/02/2025 2:51 PM CDT 01/02/2025 5:12 PM CDT Nayely Eldridge NP LAB MICROBIOLOGY - GENERAL ORDERABLES Final Result Performing Organization Address [facility] Co de Phone Number [facility] [address] [employer] [place] [address] * (ABNORMAL) Hepatitis A antibody, total Blood (01/02/2025 2:51 PM CDT) Pathologist [facility] Hep A total Reactive( A) Nonreactive Comment:Testing performed by : [facility], [address] [place]., [address] Blood 01/02/2025 2:51 PM CDT 01/02/2025 4:47 PM CDT Nayely Eldridge NP LAB MICROBIOLOGY - GENERAL ORDERABLES Final Result Performing Organization Address [facility] Co de Phone Number [facility] [address] [facility]. [facility] [address] [address] * Hepatitis B core antibody, total Blood (01/02/2025 2:51 PM CDT) [facility] Hep B core IgG/IgM Nonreactive Nonreactive Comment:Testing performed by : [facility], [address] [place] [address]., [id number] Blood 01/02/2025 2:51 PM CDT 01/02/2025 4:47 PM CDT us Nayely Eldridge NP LAB MICROBIOLOGY - GENERAL ORDERABLES Final Result Performing Organization Address [facility] Co de Phone Number [facility] [address] [facility]. [facility] [address] [address] * Hepatitis B surface antibody (immune status) Blood (01/02/2025 2:51 PM CDT) [facility] HBsAb (immune status) Reactive Comment: This result is consistent with immunity to Hepatitis B Virus when used in the setting of routine screening. Current interpretive data was last revised on 21 Testing performed by: [facility], [address] [place] [address]., [address] HBsAb (immune status) index 91.8 mIUnits/m L S[facility] Comment:Testing performed by : [facility], [address] [facility] [address] Blood 01/02/2025 2:51 PM CDT 01/02/2025 4:47 PM CDT Nayely Eldridge NP LAB MICROBIOLOGY - GENERAL ORDERABLES Final Result Performing Organization Address City/[facility]/ZIP Co de Phone Number [facility] [address] [facility]. [facility] [place] [address] * Hepatitis B Surface Antigen Blood (01/02/2025 2:51 PM CDT) Pathologist [facility] HepBsAg Nonreactive Nonreactive Comment:Testing performed by : [facility], [address] [place] [address]., [address] Blood 01/02/2025 2:51 PM CDT 01/02/2025 5:12 PM CDT Nayely Eldridge NP LAB MICROBIOLOGY - GENERAL ORDERABLES Final Result Performing Organization Address [facility] Co de Phone Number S[facility]ENE [place] [address] [employer]. [facility] [place] [address] * (ABNORMAL) Comprehensive metabolic panel (01/02/2025 2:51 PM CDT) Sodium 138 135 - 145 mmol/L Potassium, pl 4.0 3.3 - 4.9 mmol/L [facility] Chloride 101 97 - 110 mmol/L [facility] CO2 25 22 - 32 mmol/L [facility] Anion gap 12 2 - 15 mmol/L [facility] BUN 13 6 - 25 mg/dL [facility] Creatinine 0.50(L) 0.60 - 1.10 mg/dL [facility] Glucose 101 70 - 199 mg/dL [facility] Comment: Interpretive Data Fasting glucose >/= 126 mg/dl is diagnostic for diabetes. Fasting is defined as no caloric intake for at least 8 hours. Fasting glucose between 100 mg/dl to 125 mg/dl is diagnostic of prediabetes. In a patient with classic symptoms of hyperglycemia or hyperglycemic crisis, a random glucose >/= 200 mg/dl is diagnostic for diabetes. In the absence of unequivocal hyperglycemia, results should be confirmed by repeat testing. The classification and Diagnosis of Diabetes Diabetes Care 2021; 46: S19-S40. Current interpretive data was last revised 2022. Calcium 9.3 8.5 - 10.3 mg/dL [facility] Bilirubin, total 0.5 0.1 - 1.2 mg/dL [facility] Protein, pl 6.8 6.5 - 8.5 g/dL [facility] Albumin 4.6 3.5 - 5.0 g/dL [facility] Alk phos 91 40 - 130 Units/L [facility] ALT 18 7 - 45 Units/L [facility] AST 18 10 - 45 Units/L [facility] Blood 01/02/2025 2:51 PM CDT 01/02/2025 3:10 PM CDT Nayely Eldridge NP LAB BLOOD ORDERABLES Final Result [facility] [address] [facility]. [place] [address] * Colonoscopy (11/25/2023 8:30 AM CDT) Anatomical Region Laterality Modality Other Narrative Procedure Note Jazmyne Pappas MD - 11/25/2023 8:30 AM CDT [facility] Patient Name: Aurea Paige Procedure Date: 11/25/2023 8:30 AM Date of : 1970 Admit Type: Outpatient Age: 53 Gender: Female Attending MD: Jazmyne Pappas M.D. Room: [facility] ENDOSCOPY ROOM 3 Note Status: Finalized Procedure: Colonoscopy Indications: Screening for colorectal malignant neoplasm,Screening for colorectal malignant neoplasm, inadequate bowel prep on last colonoscopy (more recent than 10 years ago), Last colonoscopy one week ago Referring MD: Galen Dinh M.D. Providers: Jazmyne Pappas M.D. Medicines: Monitored Anesthesia Care Complications: No immediate complications. Estimated Blood Loss: Estimated blood loss was minimal. Procedure: Pre-Anesthesia Assessment: - Immediately prior to administration ofmedications, the patient was re-assessed for adequacy to receive sedatives. - The risks and benefits of the procedure and the sedation options and risks were discussed with the patient. All questions were answered and informed consent was obtained. The benefits, risks and alternatives of theprocedure and sedation were discussed and informed consentwas obtained. All questions were answered. Please referto the signed informed consent document in the medical record. The scope was passed under direct vision.The [facility] [id number] endoscope was introducedthrough the anus and advanced to the terminal ileum, with identification of the appendiceal orifice and IC valve. The bowel preparation used was SUPREP via extended prep with split dose instruction. Thequality of the bowel preparation was evaluated using theBBPS ([place] Bowel Preparation Scale) with scores of:Right Colon = 3, Transverse Colon = 3 and Left Colon = 3 (entire mucosa seen well with no residual staining, small fragments of stool or opaque liquid). Thetotal BBPS score equals 9. The ileocecal valve,appendiceal orifice, and rectum were photographed. The qualityof the bowel preparation was excellent. AI Technologywas utilized during the procedure to aid in polyp detection. Findings: The perianal and digital rectal examinations were normal. Two sessile polyps were found in the distal ascending colon. Thepolyps were 5 to 12 mm in size. These polyps were removed with a cold snare. Resection and retrieval were uiltimately complete. There was residual polypoid tissue post removal of the larger polyp that was resnared. Careful inspection of site after this showed no residual visiblepolyp. Estimated blood loss was minimal. A 4 mm polyp was found in the distal transverse colon. The polyp was sessile. The polyp was removed with a cold snare. Resection and retrieval were complete. Estimated blood loss was minimal. The exam was otherwise without abnormality on direct and retroflexion views. Impression: - Two 5 to 12 mm polyps in the distal ascendingcolon, removed with a cold snare. Resected andretrieved. - One 4 mm polyp in the distal transverse colon, removed with a cold snare. Resected andretrieved. - The examination was otherwise normal on directand retroflexion views. Recommendation: - Patient has a contact number available for emergencies. The signs and symptoms of potential delayed complications were discussed with thepatient. Return to normal activities tomorrow. Written discharge instructions were provided to thepatient. - Resume previous diet. - Continue present medications. - Await pathology results. - Repeat colonoscopy in 3 - 5 years [facility] based on pathology results. - Return to referring physician as previously scheduled. Attending Participation: I personally performed the entire procedure. Electronically signed by Jazmyne Pappas MD Jazmyne Pappas M.D. 11/25/2023 9:06:41 AM . Number of Addenda: 0 Note Initiated On: 11/25/2023 8:30 AM Jazmyne Pappas MD ENDOSCOPY PROCEDURES Laura l Result * Screening Mammogram 2D Bilateral (02/21/2020) Anatomical Region Laterality Modality Breast Bilateral Mammography Narrative 02/21/2020 Pt reports she had at [facility] Historical Provider MD [facility] MAMMO PROCEDURES Laura l Result from Last 3 Months or Most Recently Relevant to Health Maintenance Insurance ANTHEM ACCESS CHOICE [facility] PPO [facility] ACCESS CHOICE ANTHEM ACCESS CHOICE AETNA [facility] Advance Directives For more information, please contact: [phone] * Full Code (Latest Code Status on File) Date Activated Date Inactivated Comments 11/25/2023 8:13 AM 11/25/2023 1:36 PM * Full Code Date Activated Date Inactivated Comments 11/20/2023 8:31 AM 11/20/2023 1:49 PM Care Teams Ice Rink Attendant Relationship Specialty Start Date End Date Galen Dinh MD [facility] - General 10/17/16
--- OUTSIDE RECORDS SUMMARY | 2025-02-06 09:45 | XMS_ITS | Encounter Summary ---
Author Organization [facility] Address [address] [place] [address] Phone Care Team Providers Care Asparagus Cutter Name Role Phone Galen Dinh MD Primary Care Provider [phone] Encounter Details Date Type Department Care Team (Late st Contact Info) Description 01/30/2025 Results Follow-Up [facility] Medicine Obstetrics and Gynecology [address] [facility] 7th [address] [place] [address] Any Murphy MD [address] [facility] [address] [place] [address] Follicle stimulating hormone, Estradiol, TSH Social History Tobacco Use Types Packs/Day Years Used Date Smoking Tobacco: Never Passive Smoke Exposure: Never Alcohol Use Standard Drinks/Week Comments Yes 0 [...] on file 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
--- OUTSIDE RECORDS SUMMARY | 2025-02-06 09:46 | XMS_ITS | Clinical Summary ---
Author Organization [facility] [email or web address] Address [address] [place] [address] Care Team Providers Care Elementary [employer] Registrar Name Role Phone Galen Dinh MD Primary Care Provider [phone] Source Comments [facility],non-owned Affiliates and Associated Physician Practices is amultiple site organization consisting of ambulatory clinics and hospital sitesin [place], [place], [place] and [place]. This disclosure is being madepursuant to the Care Everywhere program and may not contain all information available regarding this patient. Last updated 18.[facility] [email or web address] Allergies No known active allergies Medications * Be aware that medications may not be up to date on this document. Alwaysverify current medications with the patient. losartan - hydroCHLOROthiazide (HYZAAR) 50-12.5 MG tablet TK 1 T PO D 1 10/03/19 18 Active FLUoxetine (PROzac) 20 MG capsule TAKE 1 CAPSULE BY MOUTH EVERY DAY 90 capsule 3 07/29/19 23 Active aspirin EC (Ecotrin) 81 MG tablet Take 1 (one) tablet by mouth once daily Active triamcinolone acetonide (Kenalog) 0.1 % ointment Apply to affected area 2 times daily 60 g 06/13/19 25 Active Active Problems Problem Noted Date Diagnosed Date Vulvar irritation 06/13/2024 Well woman exam with routine gynecological exam 06/23/2022 Assessment & Plan (10/05/2023 1:29 PM CDT): Pap smear performed - with HPV. Mammogram up to date, 06/2023 Colonoscopy scheduled. She will ask mother's oncologist re genetic testing on mother's cancer. 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 Mammogram up to date, done last week Not having menopausal symptoms currently Other screenings by PCP RTC 1 year Urge incontinence 12/14/2013 Overview (10/29/2017): Overview: Ditropan XL 5 mg Venous aneurysm 03/06/2011 Overview (10/29/2017): Overview: Being followed by [facility] neurologist Neurosurgeon is Dr. 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; Menorrhagia with regular cycle Skin mole Resolved Problems Problem Noted Date Diagnosed Date Resolved Date Supervision of normal 08/19/2011 06/23/2022 Overview (08/19/2011): Dating 9wk doc u/s +/I/-/-, GCT 107 AMA (advanced maternal age) multigravida 35+ 2 06/23/2022 Encounter for supervision of other normal 03/06/2011 06/23/2022 Overview (10/29/2017): Overview: IMO load Supervision of other high-risk 02/18/2011 06/23/2022 Immunizations Immunization Administration Dates Next Due TDAP (7yrs+) 09/06/2011 Family History Medical History Relation Name Comments Heart Disease Father Cancer Maternal Grandfather lung Cancer Maternal Grandmother colon Cancer - Ovarian Mother Hypertension Mother Heart Disease Paternal Grandfather Cancer - Breast Neg Hx Relation Name Status Comments Father Alive Maternal Grandfather Maternal Grandmother Mother Alive Paternal Grandfather Alive Social History Tobacco Use Types Packs/Day Years Used Date Smoking Tobacco: Never Smokeless Tobacco: Never Tobacco Cessation:Counseling Given: Not Answered Alcohol Use Standard Drinks/Week Comments No 0 (1 standard drink = 0.6 oz pur e alcohol) PHQ-2 Answer Date Recorded Patient Health Questionnaire-2 Score 0 09/28/2023 Comments No Sex and Gender Information Value Date Recorded Sex Assigned at Female 05/14/2022 6:01 PM ENTERPRISE RECORDS ANALYST Legal Sex Female 6:30 AM ENTERPRISE RECORDS ANALYST Gender Identity Not on file Sexual Orientation Not on file Last Filed Vital Signs Vital Sign Reading Time Taken Comments Blood Pressure 118/74 06/13/2024 1:36 PM ENTERPRISE RECORDS ANALYST Pulse 60 11/11/2017 5:00 PM CDT Temperature 36.7 C (98 F) 11/11/2017 4:25 PM CDT Respiratory Rate 18 11/11/2017 5:00 PM CDT Oxygen Saturation 100% 11/11/2017 4:25 PM CDT Inhaled Oxygen Concentration - - Weight 61.2 kg (135 lb) 09/20/2024 2:17 PM CDT Height 162.6 cm (5' 4) 09/20/2024 2:17 PM CDT Body Mass Index 23.17 09/20/2024 2:17 PM CDT Plan of Treatment Health Maintenance Due Date Last Done Comments COLOGUARD (AGES 45-75) - COLON CA SCREENING 1972 CT COLONOGRAPHY - COLON CA SCREENING 1972 FIT - COLON CA SCREENING 1972 FLEX SIG - COLON CA SCREENING 1972 LIPID TESTING 1972 HEPATITIS C SCREENING 05/06/1990 HEPATITIS B VACCINE (1 of 3 - 19+ 3-dose series) 1991 DTAP/TDAP/TD VACCINES (2 - Td or Tdap) 09/05/2021 09/06/2011 PNEUMOCOCCAL VACCINE 50+ (1 of 1 - PCV) 2022 ZOSTER VACCINE (1 of 2) 2022 DEPRESSION SCREENING 04/20/2024 10/05/2023 COVID-19 VACCINE (2024- season) 2024 02/15/2022, 03/10/2021, 06/29/2020, Additional history exists INFLUENZA VACCINE (#1) 2024 , 02/13/2021, 01/08/2020, Additional history exists MAMMOGRAM 09/20/2026 09/20/2024, 06/18, 06/13/2022, Additional history exists PAP with HPV 10/04/2028 10/05/2023, 10/03/2019 COLON MONITORING 11/24/2033 11/25/2023 COLONOSCOPY - COLON CA SCREENING 11/24/2033 11/25/2023 Colorectal Cancer Screening 11/24/2033 HIV SCREENING Completed 09/06/2011 HIB VACCINE Aged Out No longer eligi ble based on patient's age to complete this topic HPV VACCINE Aged Out No longer eligi ble based on patient's age to complete this topic MENINGOCOCCAL (Group B) VACCINE SHARED DECISION-MAKING Aged Out No longer eligible based on patient's age to complete this topic MENINGOCOCCAL GROUPS A/C/Y/W VACCINE Aged Out No longer eligible based on patient's age to complete this topic Procedures Procedure Name Priority Date/Time Associated Diagnosis Comments MAMMO BILAT SCREENING W MACK Routine 09/20/2024 2:40 PM CDT Visit for screening mammogram HPV DETECTION HIGH RISK MACK Routine 10/05/2023 1:51 PM CDT Well woman exam with routine gynecological exam HIV-1 HIV-2 ANTIBODY RAPID STAT 09/06/2011 5:19 AM CDT from Last 3 Months or Most Recently Relevant to Health Maintenance Results * Mammo Bilat Screening W Mack (09/20/2024 2:40 PM CDT) Anatomical Region Laterality Modality Breast Bilateral Mammography 09/21/2024 12:2 5 PM CDT Impressions 09/21/2024 12:26 PM CDT IMPRESSION: Annual screening mammography is recommended. OVERALL FINAL ASSESSMENT: BI-RADS Category 2: Benign. > Interpreting Provider: Kerrie Corrales MD on 09/21/2024 12:26 PM Narrative 09/21/2024 12:26 PM CDT EXAMINATION: BILATERAL DIGITAL SCREENING MAMMOGRAM AND BILATERAL BREAST TOMOSYNTHESIS HISTORY: Screening. COMPARISON: Serial examinations dating back to 08/08/2015 TECHNIQUE: BILATERAL digital breast tomosynthesis (DBT) and synthetic 2D digital mammogram images were obtained (bilateral craniocaudal and mediolateral oblique projections) including computer aided detection (CAD.) BREAST PARENCHYMAL COMPOSITION: Category B: There are scattered areas of fibroglandular density. MAMMOGRAM FINDINGS: There is no suspicious finding in either breast. There are stable benign calcifications bilaterally. A tissue marker clip is again noted in the left breast upper outer quadrant. Overall, there has been no significant interval change. Galen Dinh MD MAMMO ORDERABLES Final Result * HPV DETECTION HIGH RISK MACK (10/05/2023 1:51 PM CDT) [facility] High Risk Human Papilloma Result Not detected Not detected 10/09/2023 6:07 AM CDT [facility] High Risk Human Papilloma Interp 10/09/2023 6:07 AM CDT [facility] Comment:High Risk Human Johnathan lloma Virus was Not Detected. Pathology/Cytolo gy PART OF UTERINE CERVIX / Unknown 10/05/2023 1:51 PM CDT 10/06/2023 11:56 AM CDT Narrative [facility] - 10/09/2023 6:07 AM CDT Nucleic acid isolated from the specimen was analyzed with a nucleic acid amplification test (FDA approved Gen-Probe HPV Assay) to detect high risk human papilloma virus (Types: 16, 18, 31, 33, 35, 39, 45, 51, 52, 56, 58, 59, 66, and 68). The reference range is Not Detected. Comment: These test results should not be used as the sole basis for clinical assessment and treatment of patients. These results should always be correlated with other available data (cytology, histology, and clinical information). Jessica Bey MD LAB - MICROBIOLOGY ORDERAB LES Final Result [facility] [address] [place] [address], [facility] [phone] * HIV-1 HIV-2 ANTIBODY RAPID (09/06/2011 5:19 AM CDT) [facility] HIV-1/HIV-2 Rapid Antibody Nonreactive Nonreactiv [facility] Blood specimen (specimen) BLOOD SPECIMEN / Unknown 09/06/2011 5:19 AM CDT 09/06/2011 6:45 AM CDT us Umer Gilmore MD LAB - CHEMISTRY ORDERABL ES Final Result [facility] [address] [place] [address] from Last 3 Months or Most Recently Relevant to Health Maintenance Insurance [facility] AETNA Advance Directives * FULL RESUSCITATION (Latest Code Status on File) Date Activated Date Inactivated Comments 09/04/2011 12:51 PM 09/08/2011 11:31 PM Care Teams [employer] Registrar Relationship Specialty Start Date End Date Galen Dinh MD PCP - General Internal Medicine 12/14/13
--- OUTSIDE RECORDS SUMMARY | 2025-02-06 09:46 | XMS_ITS | Patient Health Record ---
Author Organization [facility] Address [address] [place] [address] Care Team Providers Care Plant Reliability Engineer Name Role Phone Galen Dinh Primary Care Provider Sarah Phan [phone] Reason For Referral No Information Plan Of Treatment No Information Insurance Providers Payer Name Payer Address Payer Phone Subscriber Number Group Number Insured Name Patient Relationship to Insured Coverage Start Date Coverage End Date Preeti CLARK [address] [place] [address] [id number] Aurea Paige Self - patient is the insured
== END 2025-02-06 09:15 | disposition home or self-care (01) ==
PROVIDERS: Emergency Provider Nurse Practitioner Family; PCP Internal Medicine
DX: J01.80 Other acute sinusitis (principal); B96.89 Other specified bacterial agents as the cause of diseases classified elsewhere
CPT/HCPCS: 99213; G0463